=== PATIENT | female | born 1965 | race Caucasian/White ===

== ENCOUNTER 2016-04-28 12:56 | Emergency (ER) | payer MEDICAID ==
[2016-04-28] MEDS ORDERED: DEXAMETHASONE 10 MG/ML VIAL PO STA (14:18)
[2016-04-28] MEDS ORDERED: CHERRY SYRUP 10 ML UDC PO ONE (14:19)
[2016-04-28] MEDS ORDERED: DEXAMETHASONE 10 MG/ML VIAL ONE (14:19)
== END 2016-04-28 14:34 | disposition home or self-care (01) ==
DX: S46.211A Strain of muscle, fascia and tendon of other parts of biceps, right arm, initial encounter (principal); X50.3XXA Overexertion from repetitive movements, initial encounter; Y93.F2 Activity, caregiving, lifting; Y92.099 Unspecified place in other non-institutional residence as the place of occurrence of the external cause; I10 Essential (primary) hypertension
CPT/HCPCS: 99283; A9270

== ENCOUNTER 2016-05-12 | Emergency (ER) | payer MEDICAID | END 2016-05-12 15:16 | disposition home or self-care (01) ==

== ENCOUNTER 2016-06-05 15:41 | Outpatient (CLI) | payer MEDICAID | END 2016-06-05 15:42 | disposition home or self-care (01) | DX: S46.011A Strain of muscle(s) and tendon(s) of the rotator cuff of right shoulder, initial encounter (principal) ==

== ENCOUNTER 2016-07-06 13:13 | Outpatient (CLI) | payer MEDICAID | END 2016-07-06 13:14 | disposition home or self-care (01) | DX: M50.21 Other cervical disc displacement, high cervical region (principal); M47.892 Other spondylosis, cervical region ==